=== PATIENT | male | born 1955 | race Caucasian/White ===

== ENCOUNTER 2023-12-10 16:11 | Emergency (ER) | payer OTHER ==
[~2023-12-10] VITALS: Ht 177.8 cm; Wt 70.5 kg
[2023-12-10] MEDS ORDERED: SODIUM CHLORIDE 0.9% 1,000 ML IV ONE (17:15)
[2023-12-10] MEDS ORDERED: ZYRTEC10 M3 PO (17:15)
[2023-12-10] MEDS ORDERED: BEVESPI AEROS10.7 GM INH (17:16)
[2023-12-10] MEDS ORDERED: OMEPRAZOLE20 MG PO (17:16)
[2023-12-10] MEDS ORDERED: VENTOLIN HFA18 GM INH (17:16)
[2023-12-10] MEDS ORDERED: XALATAN2.5 ML OPTH (17:18)
[2023-12-10] MEDS ORDERED: TRIAMCINOLONE A15 G3 NAS (17:18)
[2023-12-10] MEDS ORDERED: VITAMIN B-121000 MC3 PO (17:19)
[2023-12-10] MEDS ORDERED: VITAMIN D250 MC1 PO (17:19)
[2023-12-10 17:30] LABS: MCH 29.3 (27-36); NEUTROPHILS 72.5 % (39-80)
[2023-12-10 17:44] LABS: ALBUMIN 3.7 g/dL (3.4-5.0); ALBUMIN/GLOBULIN RATIO 1.16 (1.1-2.4); ANION GAP 13.7 (7-21); BILIRUBIN, TOTAL 0.9 ng/dL (0.2-1.0); BUN/CREATININE RATIO 27.77 (6.0-28.6); CALCIUM 8.9 mg/dL (8.5-10.1); CREATININE, SERUM 1.08 mg/dL (0.70-1.30); POTASSIUM 3.7 mmol/L (3.5-5.1); PROTEIN, TOTAL 6.9 g/dL (6.4-8.2)
[2023-12-10 17:54] LABS: BASOPHILS 0.6 % (0-2); EOSINOPHILS 0.5 % (0-6); HEMOGLOBIN 14.5 g/dL (12.0-18.0); MCHC 33.7 g/dl (30-36); MCV 86.7 fl (81-99); MONOCYTES 9.4 % (0-12); PLATELET COUNT 295 K/uL (140-440); RBC 4.95 M/ul (4.3-5.7)
[2023-12-10 18:03] LABS: INR 1.07 (0.80-1.30); PARTIAL THROMBOPLASTIN TIME 32.5 Sec (22.9-41.3); PROTIME 13.2 Sec (11.2-14.2)
[2023-12-10] MEDS ORDERED: DEXAMETHASONE SOD PHOS 10 MG/ML VIAL IV ONE (20:00)
[2023-12-10] MEDS ORDERED: levETIRAcetam 500 MG/5 ML VIAL IV ONE (20:00)
[2023-12-10 21:52] VITALS: BP 135/70
[2023-12-10] MEDS ORDERED: methylPREDNISolone 4 MG HOME.PACK PO ONE (22:00)
== END 2023-12-10 22:10 | disposition home or self-care (01) ==
LOC: ED 16:11
PROVIDERS: Emergency Medicine
DX: H53.2 Diplopia (principal); G11.9 Hereditary ataxia, unspecified; C34.90 Malignant neoplasm of unspecified part of unspecified bronchus or lung; G93.9 Disorder of brain, unspecified; Z88.8 Allergy status to other drugs, medicaments and biological substances; Z79.899 Other long term (current) drug therapy
CPT/HCPCS: 36415; 70450; 70496; 70498; 80053; 80307; 85025; 85610; 85730; 96375; 99284-25; J1100; J1953; J7030; Q9967

== ENCOUNTER 2023-12-17 17:33 | Emergency (ER) | payer OTHER ==
[~2023-12-17] VITALS: Ht 177.8 cm; Wt 68.4 kg
[~2023-12-17 17:33] MED LIST: BEVESPI AEROS10.7 GM INH; OMEPRAZOLE20 MG PO; TRIAMCINOLONE A15 G3 NAS; VENTOLIN HFA18 GM INH; VITAMIN B-121000 MC3 PO; VITAMIN D250 MC1 PO; XALATAN2.5 ML OPTH; ZYRTEC10 M3 PO
--- OUTSIDE RECORDS SUMMARY | 2023-12-17 17:39 | XMS ---
PreManage Notification: ANGÉLICA MILLER [employer] Events No recent Security Events currently on file CRITERIA MET - [facility] - 2 Visits in 30 Days CARE PROVIDERS There are no care providers on record at this time. Xi has no Care Guidelines for this patient. Debbie VISIT COUNT (12 MO.) 2 [facility] [place] [facility] TOTAL 2 NOTE: Visits indicate total known visits. ED/C VISIT TRACKING (12 MO.) 12/17/2023 17:[address] [facility] [place] TYPE: Emergency COMPLAINT: - VOMITING 12/10/2023 16:[address] [facility] [place] TYPE: Emergency COMPLAINT: - HEAD PAIN/DIZZIENESS DIAGNOSES: - Allergy status to other drugs, medicaments and biological substances - Diplopia - Disorder of brain, unspecified - Hereditary ataxia, unspecified - Malignant neoplasm of unspecified part of unspecified bronchus or lung - Other retirement (current) drug therapy INPATIENT VISIT TRACKING (12 MO.) No inpatient visits to display in this time frame [email or web address]
[2023-12-17] MEDS ORDERED: ondansetron HCL 4 MG/2 ML VIAL IV ONE (17:45)
[2023-12-17 18:03] LABS: BASOPHILS 0.7 % (0-2); EOSINOPHILS 0.7 % (0-6); HEMATOCRIT 45.7 % (35.0-50.0); HEMOGLOBIN 15.1 g/dL (12.0-18.0); LYMPHOCYTES 17.4 % (24-44); MCH 29.1 (27-36); MCHC 33.1 g/dl (30-36); MCV 87.9 fl (81-99); MONOCYTES 9.8 % (0-12); NEUTROPHILS 71.4 % (39-80); PLATELET COUNT 287 K/uL (140-440); RDW 14.4 (10.5-15.0)
[2023-12-17 18:18] LABS: ALBUMIN 3.8 g/dL (3.4-5.0); ALBUMIN/GLOBULIN RATIO 1.09 (1.1-2.4); BILIRUBIN, TOTAL 0.9 ng/dL (0.2-1.0); BUN/CREATININE RATIO 25.68 (6.0-28.6); CALCIUM 9.3 mg/dL (8.5-10.1); CREATININE, SERUM 1.09 mg/dL (0.70-1.30); MAGNESIUM 2.1 mg/dL (1.8-2.4); PROTEIN, TOTAL 7.3 g/dL (6.4-8.2)
[2023-12-17] MEDS ORDERED: DEXAMETHASONE SOD PHOS 10 MG/ML VIAL IV ONE (19:30)
[2023-12-17] MEDS ORDERED: ONDANSETRON ODT4 MG PO (19:37)
[2023-12-17] MEDS ORDERED: DEXAMETHASONE6 MG PO (19:37)
[2023-12-17 20:17] VITALS: BP 127/77
== END 2023-12-17 20:18 | disposition other institution, planned readmission (95) ==
LOC: ED 17:33
PROVIDERS: Emergency Medicine
DX: D49.6 Neoplasm of unspecified behavior of brain (principal); R11.2 Nausea with vomiting, unspecified; E11.9 Type 2 diabetes mellitus without complications; J44.9 Chronic obstructive pulmonary disease, unspecified; K21.9 Gastro-esophageal reflux disease without esophagitis; Z88.8 Allergy status to other drugs, medicaments and biological substances; Z79.899 Other long term (current) drug therapy
CPT/HCPCS: 80053; 83735; 85025; 99284